=== PATIENT | female | born 1995 | race Caucasian/White ===

== ENCOUNTER 2017-12-15 15:34 | Outpatient (REF) | payer OTHER, SELFPAY ==
[2017-12-15 22:52] LABS: HCG Quant, Pregnancy < 1 mIU/mL (1-3)
== END 2017-12-15 15:54 ==
LOC: NCHCN 15:34
PROVIDERS: PCP Nurse Practitioner Family; Visit Provider Registered Nurse
DX: Z32.00 Encounter for pregnancy test, result unknown (principal)
CPT/HCPCS: 84702

== ENCOUNTER 2019-12-09 13:49 | Outpatient (REF) | payer MEDICAID, SELFPAY ==
[2019-12-09 21:14] LABS: ALT 14 U/L (14-59); AST 12 U/L (15-37)
== END 2019-12-09 14:09 ==
LOC: NCHCN 13:49
PROVIDERS: PCP Nurse Practitioner Family; Visit Provider Registered Nurse
DX: M54.2 Cervicalgia (principal)
CPT/HCPCS: 84450; 84460